=== PATIENT | female | born 1990 | race Caucasian/White ===

== ENCOUNTER 2017-02-04 13:35 | Emergency (ER) | payer OTHER ==
--- NOTE | ~2017-02-04 | CR72 ---
[facility] A Service of [facility] RADIOLOGY TEXT RESULTS PATIENT: ELPIDIO DALEY LOCATION: [facility] : [birth year] UNIT #: [id number] AGE: [address]: Sukhwinder Shukla MD SEX: F ORDER DR: [id number] [facility] [address] [place], [place] [address] [id number] E MR#: [id number] Acc #: [id number] NAME: ELPIDIO DALEY : 1990 SEX: F STUDY DATE/TIME: 02/04/2017 14:45 UNIT: [facility] ROOM: STUDY DESCRIPTION: CR Chest Single View Portable Attending Physician: Sohan Shukla M.D. Ordering Physician: Ed Doc Rojelio Beckwith Primary Care Physician: No Primary Care Physician MEDICAL IMAGING REPORT This report is preliminary unless electronic signature is present EXAM Portable chest INDICATIONS 26-year-old female with shortness of breath today. COMPARISON No comparisons. FINDINGS There are bilateral upper zone infiltrates, left greater than right, suspicious for pneumonia. Follow up to clearing is recommended. Heart size normal. Visualized osseous structures are unremarkable. IMPRESSION Bilateral upper zone infiltrates, left greater than right, suspicious for pneumonia. Dictated by... Constantine Browning M.D. THIS IS AN ELECTRONICALLY VERIFIED REPORT Constantine Browning M.D. at 02/07/2017 7:37 AM PELON/pedro TD: 02/04/2017 17:25 JOB #: [id number] MEDICAL IMAGING REPORT Page 1 of 1 COPY
== END 2017-02-04 16:42 | disposition home or self-care (01) ==
LOC: CED 13:35
DX: T40.1X1A Poisoning by heroin, accidental (unintentional), initial encounter (principal); F17.200 Nicotine dependence, unspecified, uncomplicated
CPT/HCPCS: 71010; 96372; 99283; J1885